=== PATIENT | male | born 1955 | race Caucasian/White ===

== ENCOUNTER → 2016-11-21 | Outpatient (CLI) | payer MEDICARE ==
[~2016-11-21] MED LIST: ASMA1AER3 INH; ATOR40TA PO; LISI-542 PO; SPIR1CAP INH
--- NOTE | 2016-11-21 10:08 | REP ---
Clinical: COPD . Comparison: 12/09/2013 . Technique: PA and lateral. Findings: The mediastinum and cardiac silhouette are normal. The lung trujillo demonstrate stable chronic changes without acute consolidation, effusion, or pneumothorax. The skeletal structures are intact and normal. Impression: Stable. No acute cardiopulmonary process. Signed by Brendon Sigala MD 11/21/2016 10:00 A
== END ==
LOC: M SMT 09:45
PROVIDERS: ATTEND Internal Medicine Pulmonary Disease
DX: J44.9 Chronic obstructive pulmonary disease, unspecified (principal)

== ENCOUNTER → 2016-12-27 | Outpatient (CLI) | payer MEDICARE ==
--- NOTE | 2016-12-27 11:02 | REP ---
Chest two views HISTORY: COPD Comparison: 12/10/2016 The lungs are hyperinflated. An infiltrate is present in the left lower lobe that is decreased compared to the previous study. The right lung is clear. The heart is normal in size. The pulmonary vasculature is normal in appearance. The bony structure is intact. IMPRESSION: Left lower lobe infiltrate decreased compared to the previous study. Signed by Jae Celis MD 12/27/2016 10:54 A
== END ==
LOC: M SMT 09:52
PROVIDERS: ATTEND Internal Medicine Pulmonary Disease
DX: J44.9 Chronic obstructive pulmonary disease, unspecified (principal)

== ENCOUNTER → 2018-12-09 | Outpatient (CLI) | payer MEDICARE ==
[~2018-12-09] MED LIST changes: -ATOR40TA PO; +ATOR40TA75 PO
--- NOTE | 2018-12-09 11:59 | REP ---
CHEST X-RAY: TWO VIEWS. HISTORY: Chronic pulmonary disease. COMPARISON CHEST X-RAY: December 27, 2016 FINDINGS: The lungs are hyperinflated and clear today consistent with some degree of COPD. Pleural angles are sharp. Heart size is normal. Pulmonary vasculature is not increased. No significant bony abnormality is seen. IMPRESSION: Hyperinflation consistent with COPD. Otherwise no acute disease. Electronically Signed by Mark Andres MD 12/09/2018 01:02 P
== END ==
LOC: M SMT 09:36
PROVIDERS: ATTEND Internal Medicine Pulmonary Disease
DX: R91.8 Other nonspecific abnormal finding of lung field (principal)

== ENCOUNTER → 2020-02-16 | Outpatient (CLI) | payer MEDICARE ==
--- NOTE | 2020-02-16 15:08 | REPPI ---
REASON: Followup chronic lung disease. COMPARISON: Multiple, the latest 12/09/2018. The lung trujillo have a stable appearance without evidence of an acute patchy parenchymal opacity or pleural effusion. There is lung field hyperexpansion status quo. The pleural angles are again seen to be sharp. The heart is not enlarged. The osseous structures are stable and intact. IMPRESSION: Stable exam. Electronically Signed by Tommy Massey DO 02/16/2020 05:28 P
== END ==
LOC: M PLAIMG 11:27
PROVIDERS: ATTEND Internal Medicine Pulmonary Disease
DX: J44.9 Chronic obstructive pulmonary disease, unspecified (principal)

== ENCOUNTER → 2020-12-30 | Outpatient (CLI) | payer MEDICARE ==
[~2020-12-30] MED LIST changes: -LISI-542 PO; +LISI-898 PO
--- NOTE | 2020-12-30 12:06 | REPPI ---
INDICATION: COPD COMPARISON: 02/16/2020. TECHNIQUE: PA/Lateral FINDINGS: Lungs: Clear, no infiltrate. There are mild bibasilar interstitial fibrotic changes. Heart: Normal in size. Mediastinum: Mediastinal silhouette unremarkable. Pleural angles: Unremarkable.. Bones and soft tissues: Unremarkable. IMPRESSION: No acute pulmonary disease. Mild stable chronic findings. <Electronically signed by Navin Grider > 12/30/20 [id number]
== END ==
LOC: M PLAIMG 11:20
PROVIDERS: ATTEND Internal Medicine Pulmonary Disease
DX: J84.89 Other specified interstitial pulmonary diseases (principal)

== ENCOUNTER → 2021-08-08 | Outpatient (CLI) | payer MEDICARE ==
[2021-08-08 13:16] LABS: ABG HCO3 22.6 MEQ/L (22.0-26.0); ABG O2 SATURATION 97.4 % (95.0-99.0); ABG PARTIAL PRESSURE CO2 34.7 mmHg (35.0-45.0); ABG PARTIAL PRESSURE O2 91.4 mmHg (75.0-100.0); ABG STANDARD HCO3 23.6 MEQ/L (22.0-26.0); ABG TOTAL CO2 23.6 MEQ/L (23.0-31.0); ABG pH (ARTERIAL) 7.431 UNITS (7.350-7.450)
--- NOTE | 2021-08-08 13:25 | REP ---
INDICATION: PANLOBULAR EMPHYSEMA COMPARISON: None TECHNIQUE: Axial noncontrast images from the thoracic inlet to the upper abdomen with coronal and sagittal reformations. This CT examination was performed using the following dose reduction techniques: Automated exposure control, adjustment of mA and/or kv according to the patient's size, and use of iterative reconstruction technique. FINDINGS: Moderate to advanced panlobular emphysematous changes are appreciated along with mild scattered scarring and bronchiectasis. There is a small 4 mm subpleural density along the posterior aspect of the right upper lobe (series 201; image 26). No consolidation. No effusion. No further suspicious nodule or mass. The mediastinum demonstrates atherosclerotic changes to the thoracic aorta and coronary arteries without aortic aneurysm or cardiomegaly. No pericardial effusion. No significant adenopathy. Surrounding musculoskeletal structures are intact limited upper abdomen demonstrates normal bilateral adrenal glands. IMPRESSION: 1. Panlobular emphysematous changes with minimal scattered scarring and bronchiectasis. 2. 4 mm subpleural nodule in the posterior right upper lobe. High risk patients may warrant 12 month follow-up examination. <Electronically signed by Brendon Sigala > 08/08/21 [id number]
--- NOTE | 2021-08-09 08:50 | ECHO ---
ECHOCARDIOGRAM DATE OF PROCEDURE: 08/08/2021 Age: 65 Gender: Male Height: 178 cm Weight: 103 kg REFERRING PHYSICIAN: Vlad Hough D.O., [facility] INDICATION: Pulmonary hypertension. MEASUREMENTS: IVS 1.1 cm LV 4.9 cm LVPW 1.1 cm LA 3.9 cm Aorta 3.2 cm IVC 1.9 cm Mitral E wave velocity 66 A wave 83 E prime septal 6.7 E prime lateral 8.9 Left atrial volume index 29 FINDINGS: This study is of rather limited technical quality with difficult visualization. Underlying sinus rhythm with occasional ectopic beats. Left ventricle is normal size and overall preserved systolic function with estimated EF around 60%. I do not appreciate any segmental wall motion abnormalities. Right ventricle was poorly visualized and appears grossly normal. Both atria appear normal. Aortic valve was poorly seen. It is most likely tricuspid, but visualization was limited. Mitral and tricuspid valves appear normal. Pulmonic valve was not visualized. No pericardial effusion is noted. Inferior vena cava is upper limits of normal size, but does collapse completely with inspiration, indicative of likely normal central venous pressure. Aortic root is normal. Aortic arch and abdominal aorta were not well seen. Doppler interrogation reveals competent aortic valve. There is trace mitral insufficiency. Tricuspid valve is also functionally competent and consequently I was unable to estimate pulmonary artery pressure. Mitral inflow pattern and tissue Doppler imaging of mitral annulus reveal grade 1 diastolic dysfunction. CONCLUSIONS: 1. Study is of rather limited technical quality with very challenging visualization. Underlying sinus rhythm with occasional ectopic beats. 2. Normal LV size with normal LV systolic function and grade 1 diastolic dysfunction. 3. RV does not appear dilated based on limited views. 4. No significant valvular disease. 5. Likely normal central venous pressure. 6. Unable to estimate pulmonary artery pressure, but no signs to suggest pulmonary hypertension.
== END ==
LOC: M CARPUL 12:04
PROVIDERS: ATTEND Internal Medicine Pulmonary Disease
DX: J44.9 Chronic obstructive pulmonary disease, unspecified (principal); I27.20 Pulmonary hypertension, unspecified; R91.1 Solitary pulmonary nodule

== ENCOUNTER → 2021-11-15 | Outpatient (CLI) | payer MEDICARE ==
[~2021-11-15] MED LIST changes: -LISI-898 PO; +LISI5TAB11 PO
== END ==
LOC: M RAD 12:38
PROVIDERS: ATTEND Internal Medicine
DX: Z01.818 Encounter for other preprocedural examination (principal); J44.9 Chronic obstructive pulmonary disease, unspecified; R91.1 Solitary pulmonary nodule
CPT/HCPCS: 71046; 71250; 78582; A9540; A9567

== ENCOUNTER → 2022-01-18 | Outpatient (CLI) | payer MEDICARE | LOC: M RAD 10:06 | PROVIDERS: ATTEND Internal Medicine | DX: Z01.818 Encounter for other preprocedural examination (principal); J44.9 Chronic obstructive pulmonary disease, unspecified ==

== ENCOUNTER → 2022-04-04 | Outpatient (CLI) | payer MEDICARE | LOC: M RAD 11:14 | PROVIDERS: ATTEND Internal Medicine | DX: J98.4 Other disorders of lung (principal) ==

== ENCOUNTER → 2022-08-02 | Outpatient (REF) | payer MEDICARE | LOC: M LAB REF 15:22 | PROVIDERS: ATTEND Internal Medicine Pulmonary Disease | DX: J44.9 Chronic obstructive pulmonary disease, unspecified (principal) ==

== ENCOUNTER → 2022-08-29 | Outpatient (CLI) | payer MEDICARE ==
[~2022-08-29] MED LIST changes: -ASMA1AER3 INH; +MOME13HF5 INH
== END ==
LOC: M PLAIMG 08:47
PROVIDERS: ATTEND Internal Medicine
DX: J44.9 Chronic obstructive pulmonary disease, unspecified (principal)

== ENCOUNTER → 2023-10-28 | Outpatient (REF) | payer MEDICARE | LOC: M LAB REF 15:35 | PROVIDERS: ATTEND Surgery | DX: D48.5 Neoplasm of uncertain behavior of skin (principal) ==

== ENCOUNTER → 2023-11-13 | Outpatient (REF) | payer MEDICARE | LOC: M LAB REF 14:46 | PROVIDERS: ATTEND Surgery | DX: L72.0 Epidermal cyst (principal) ==

== ENCOUNTER → 2024-01-01 | Outpatient (CLI) | payer MEDICARE | LOC: M PLAIMG 15:06 | PROVIDERS: ATTEND Internal Medicine Pulmonary Disease | DX: J44.9 Chronic obstructive pulmonary disease, unspecified (principal) ==

== ENCOUNTER 2025-04-22 07:32 | Day surgery (SDC) | payer MEDICARE ==
[~2025-04-22] VITALS: Ht 175.3 cm; Wt 98.9 kg
[~2025-04-22 07:32] MED LIST changes: +CITA40TA7 PO; +HYDR50TA70 PO; +ROSU20TA86 PO; +VALS1TAB67 PO
[2025-04-22] MEDS: LR 1,000 ML IV SCH (07:55)
[2025-04-22] MEDS ORDERED: LIDOCAINE 2% 100 MG/5 ML SDV (FOR ANES.) As Ordered ONE (08:25)
[2025-04-22] MEDS ORDERED: dexAMETHasone 4 MG/ML 1 ML VIAL As Ordered ONE (08:25)
[2025-04-22] MEDS ORDERED: ONDANSETRON 4MG 2ML VIAL As Ordered ONE (08:25)
[2025-04-22] MEDS ORDERED: MIDAZOLAM INJ 2 MG/2 ML VIAL As Ordered ONE (08:26)
[2025-04-22] MEDS: ceFAZolin SOD 2 GM IV ONCE IV ONE (10:02)
[2025-04-22] MEDS ORDERED: dexmedeTOMIDine (4 MCG/ML) 200 MCG/50 ML BTL As Ordered ONE (10:06)
[2025-04-22] MEDS: LIDOCAINE 2% W/EPINEPHrine 20 ML VIAL **PRES FREE As Ordered ONE (10:13)
[2025-04-22] MEDS ORDERED: ACETAMINOPHEN 1000MG/100ML IV BAG As Ordered ONE (10:21)
[2025-04-22] MEDS ORDERED: HYDROMORPHONE HCL 0.5 MG/0.5 ML SYRINGE IV PRN (10:55)
[2025-04-22] MEDS ORDERED: LR 1,000 ML IV SCH (10:55)
[2025-04-22] MEDS ORDERED: ONDANSETRON 4MG 2ML VIAL IV PRN (10:55)
[2025-04-22 11:46] VITALS: BP 138/72; TEMP 97.4; O2SAT 100
== END 2025-04-22 11:58 | disposition home or self-care (01) ==
LOC: M SDC 07:32
PROVIDERS: ATTEND Plastic Surgery Surgery of the Hand
DX: L98.7 Excessive and redundant skin and subcutaneous tissue (principal); J44.9 Chronic obstructive pulmonary disease, unspecified; Z79.899 Other long term (current) drug therapy
CPT/HCPCS: 21552; 88307; J0131; J0690; J1100; J2250; J2405; J2765; J3010